=== PATIENT | male | born 1950 | race Caucasian/White ===

== ENCOUNTER → 2021-08-09 14:16 | Outpatient (BNVA) | payer OTHER, SELFPAY | PROVIDERS: Visit Provider Surgery | DX: Z20.822 Contact with and (suspected) exposure to COVID-19 (principal); R10.9 Unspecified abdominal pain | CPT/HCPCS: 87635 ==

== ENCOUNTER 2021-08-12 08:23 | Day surgery (SDC) | payer OTHER, SELFPAY ==
[2021-08-10 12:26] VITALS: BMI 35.9
--- NOTE | 2021-08-12 09:09 | P.ANESASSM_ITS ---
Pre-Anesthetic Assessment Height/Weight: Height 1.83 m Weight 120.202 kg Preop Diagnosis: Abdominal pain Operation Date: 08/12/21 10:30 Proposed Procedures p Colonoscopy 13679 R10.9(Not Applicable) - Lalo Patricia MD Familial anesthetic complications: None Was Beta Hever taken within 24 hours: Yes Was Clonidine taken within 24 hours: N/A Last intake: > 8 hrs Social No alcohol and No tobacco Exam alert, oriented x 3, clear to auscultation bilaterally and regular rate & rhythm Airway Mallampati: Class IV Dentition: other (permanent bridge) Pulmonary Sleep Apnea CV/HEM Coronary Artery Disease (stent > 1 year ago) and Hypertension states he doesnt' take his plavix None reported Hepatic None reported Metabolic Diabetes Mellitus, Hyperlipidemia and Morbid Obesity Anesthetic Plan ASA status: 3 Anesthesia: MAC Other: patient is poor historian Risk of > 500 ml blood loss (7ml/kg in children): No Medications/Allergies Home Medications Medication Instructions Recorded Confirmed Last Taken Type amlodipine 5 mg tablet 5 mg PO DAILY 05/17/21 08/10/21 Unknown History aspirin 81 mg tablet,delayed 81 mg PO DAILY 05/17/21 08/10/21 Unknown History release (Adult Low Dose Aspirin) atorvastatin 80 mg tablet 80 mg PO DAILY 05/17/21 08/10/21 Unknown History buspirone 10 mg tablet 10 mg PO BID 05/17/21 08/10/21 Unknown History cholecalciferol (vitamin D3) 50 50 mcg PO DAILY 05/17/21 08/10/21 Unknown History mcg (2,000 unit) capsule clopidogrel 75 mg tablet 75 mg PO DAILY 05/17/21 08/10/21 Unknown History finasteride 5 mg tablet 5 mg PO DAILY 05/17/21 08/10/21 Unknown History hydrochlorothiazide 25 mg tablet 25 mg PO DAILY 05/17/21 08/10/21 Unknown History hydrocortisone 20 mg tablet 20 mg PO DAILY 05/17/21 08/10/21 Unknown History metformin 1,000 mg tablet 1,000 mg PO DAILY 05/17/21 08/10/21 Unknown History metoprolol tartrate 50 mg tablet 50 mg PO DAILY 05/17/21 08/10/21 Unknown History miconazole nitrate 2 % topical 1 spray TOPICAL DAILY 05/17/21 08/10/21 Unknown History spray powder omeprazole 20 mg capsule,delayed 20 mg PO DAILY 05/17/21 08/10/21 Unknown History release prazosin 2 mg capsule 2 mg PO BID 05/17/21 08/10/21 Unknown History psyllium husk 0.4 gram capsule 0.4 g PO DAILY 05/17/21 08/10/21 Unknown History (Fiber (psyllium husk)) quetiapine 400 mg tablet 400 mg PO BID 05/17/21 08/10/21 Unknown History sertraline 100 mg tablet 100 mg PO DAILY 05/17/21 08/10/21 Unknown History tamsulosin 0.4 mg capsule 0.4 mg PO DAILY 05/17/21 08/10/21 Unknown History trazodone 100 mg tablet 100 mg PO DAILY 05/17/21 08/10/21 Unknown History trospium 20 mg tablet 20 mg PO BID 05/17/21 08/10/21 Unknown History Allergies Allergy/AdvReac Type Severity Reaction Status Date / Time hydrocodone Allergy SWELLING Verified 08/10/21 12:17 IN [facility] Anesthesia Family History Other CAD (coronary artery disease) Cancer Dementia Diabetes Denies family history of Lung disease Stroke Social History Smoking and tobacco status: never smoked Second hand smoke exposure: No Alcohol intake: current Alcohol intake frequency: few times a month Lives independently: Yes Household members: spouse Marital status: Data Anesthesia Cardiac Studies: No Data to Display
[2021-08-12 09:36] VITALS: BP 113/64; PULSE 57; RESP 20; TEMP 36.9; O2SAT 97
[2021-08-12] MEDS: sodium chloride 0.9% 1,000 ML 30 ML IV (09:47)
--- NOTE | 2021-08-12 11:35 | P.HP_ITS ---
Same Day Surgery H&P Indication for Procedure/HPI DATE OF PROCEDURE: August 12, 2021 CHIEF COMPLAINT/INDICATIONFOR SURGICAL PROCEDURE: Abdominal pain PREOP DIAGNOSIS: Abdominal pain PLANNED PROCEDURE: Operation Date: 08/12/21 10:30 Proposed Procedures p Colonoscopy 72043 R10.9(Not Applicable) - Lalo Patricia MD 05/17/2021 This is a pleasant 70 years old gentleman with history of left-sided abdominal pain for the past year or so.? Patient describes it as being sharp gets better with resting and nothing seems to make it worse that he is aware of.? Not being referred.? Denies bleeding per rectum or change in bowel movements.? Previous colonoscopies back in 2010 and 2015 and nothing was remarkable per his descr iption.Denies any left flank pain or dysuria. Patient is referred to me for further evaluation and work-up. Interim history 08/12/2021 Patient comes today for diagnostic colonoscopy, unfortunately the CT scan of the abdomen and pelvis is not done yet due to authorization pending process ROS All systems have been reviewed negative except as per the above or per problem list Medications/Allergies* Home Medications Medication Instructions Recorded Confirmed Type amlodipine 5 mg tablet 5 mg PO DAILY 05/17/21 08/10/21 History aspirin 81 mg tablet,delayed 81 mg PO DAILY 05/17/21 08/12/21 History release (Adult Low Dose Aspirin) atorvastatin 80 mg tablet 80 mg PO DAILY 05/17/21 08/12/21 History buspirone 10 mg tablet 10 mg PO BID 05/17/21 08/12/21 History cholecalciferol (vitamin D3) 50 50 mcg PO DAILY 05/17/21 08/12/21 History mcg (2,000 unit) capsule clopidogrel 75 mg tablet 75 mg PO DAILY 05/17/21 08/12/21 History finasteride 5 mg tablet 5 mg PO DAILY 05/17/21 08/12/21 History hydrochlorothiazide 25 mg tablet 25 mg PO DAILY 05/17/21 08/12/21 History hydrocortisone 20 mg tablet 20 mg PO DAILY 05/17/21 08/10/21 History metformin 1,000 mg tablet 1,000 mg PO DAILY 05/17/21 08/10/21 History metoprolol tartrate 50 mg tablet 50 mg PO DAILY 05/17/21 08/10/21 History miconazole nitrate 2 % topical 1 spray TOPICAL DAILY 05/17/21 08/12/21 History spray powder omeprazole 20 mg capsule,delayed 20 mg PO DAILY 05/17/21 08/12/21 History release prazosin 2 mg capsule 2 mg PO BID 05/17/21 08/12/21 History psyllium husk 0.4 gram capsule 0.4 g PO DAILY 05/17/21 08/10/21 History (Fiber (psyllium husk)) quetiapine 400 mg tablet 400 mg PO BID 05/17/21 08/12/21 History sertraline 100 mg tablet 100 mg PO DAILY 05/17/21 08/12/21 History tamsulosin 0.4 mg capsule 0.4 mg PO DAILY 05/17/21 08/12/21 History trazodone 100 mg tablet 100 mg PO DAILY 05/17/21 08/12/21 History trospium 20 mg tablet 20 mg PO BID 05/17/21 08/10/21 History Allergies/Adverse Reactions Allergy/AdvReac Type Severity Reaction Status Date / Time hydrocodone Allergy SWELLING Verified 08/12/21 11:41 IN ARM Current Medications: Generic Name Dose Route Start Last Admin Trade Name Freq PRN Reason Stop Dose Admin Sodium Chloride 1,000 mls @ 30 mls/hr 08/12/21 08:45 08/12/21 09:47 Sodium Chloride 0.9% IV 08/13/21 08:44 30 mls/hr .Q24H EDVIN Administration Pertinent History/Comorbid Conditions* Family History (Updated 05/17/21 @ 13:45 by Shae Garcia) Diabetes CAD (coronary artery disease) Dementia Cancer Denies family history of Lung disease Stroke Social History Smoking and tobacco status: never smoked Second hand smoke exposure: No Alcohol intake: current Alcohol intake frequency: few times a month Lives independently: Yes Household members: spouse Marital status: Pertinent Exam Findings alert, oriented x 3 and procedure specific exam findings (Abdominal examination nontender nondistended soft) Recommendations Surgery/Procedure today (Colonoscopy with possible biopsy.) Coding Level of Care Code 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
[2021-08-12 12:30] VITALS: BP 121/61; PULSE 63; RESP 16; TEMP 36.1; O2SAT 95
[2021-08-12 12:50] VITALS: BP 121/65; PULSE 50; RESP 16; O2SAT 99
--- NOTE | 2021-08-12 19:18 | ANE.PACU2 ---
Inpatient post-anesthesia follow up: Airway intact: Yes Vital signs: Temperature 97 F Pulse Rate 50 Respiratory Rate 16 Blood Pressure 121/65 Pulse Oximetry 99 Oxygen Delivery Me thod Room Air Oxygen Flow Rate 3 Fraction of Inspir ed Oxygen Hydration adequate: Yes Nausea and vomiting: No Pain level: 1 Mental status: Baseline
== END 2021-08-12 13:05 | disposition home or self-care (01) ==
PROVIDERS: PCP Family Medicine; Visit Provider Surgery
PROC: 0DJD8ZZ Inspection of Lower Intestinal Tract, Via Natural or Artificial Opening Endoscopic (ICD-10-PCS; CPT 45378; principal; 2021-08-12 10:30)
DX: R10.9 Unspecified abdominal pain (principal); K57.30 Diverticulosis of large intestine without perforation or abscess without bleeding; G47.30 Sleep apnea, unspecified; I25.10 Atherosclerotic heart disease of native coronary artery without angina pectoris; Z95.5 Presence of coronary angioplasty implant and graft; I10 Essential (primary) hypertension; Z91.14 Patient's other noncompliance with medication regimen; E66.01 Morbid (severe) obesity due to excess calories; Z68.35 Body mass index [BMI] 35.0-35.9, adult; Z79.82 Long term (current) use of aspirin; Z79.84 Long term (current) use of oral hypoglycemic drugs
CPT/HCPCS: 45378; J2704; J7030

== ENCOUNTER 2021-09-07 07:37 | Outpatient (CLI) | payer OTHER, SELFPAY ==
--- NOTE | 2021-09-07 07:43 | CT_ITS ---
WS: [id number] CT ABDOMEN AND PELVIS WITH CONTRAST HISTORY: R10.9 - Unspecified abdominal pain, LEFT upper quadrant pain for one year. TECHNIQUE: Imaging performed of the abdomen and pelvis with IV contrast. Single phase imaging of the abdomen. Coronal and sagittal reformats are submitted. All CT scans at [facility] use at [address] one of these dose optimization techniques: automated exposure control; mA and/or kV adjustment per patient size (includes targeted exams where dose is matched to clinical indication); or iterative re construction. IV CONTRAST: Omnipaque 300; 95 mL IV. Oral contrast: Yes. DLP: 1340.69 mGy.cm COMPARISON: None available. Lower thorax: Lung bases are clear. Heart is normal size. No hiatal hernia. Liver/biliary system: Mild diffuse hepatic steatosis. No mass. Normal portal vein. No bile duct dilat ation. Gallbladder: Normal. No gallstones or wall thickening. No pericholecystic fluid. Pancreas: Normal size pancreas and pancreatic duct. No adjacent inflammation. Spleen: Normal size spleen. No mass or infarct. Adrenal glands: Normal RIGHT adrenal gland. Mild thickening of the LEFT adrenal gland. Right kidney: Normal. Left kidney: Normal. Aorta: Mild atherosclerosis with no aneurysm. Lymphadenopathy: None. Free fluid: None. GI tract: Normally distended stomach. No small bowel obstruction or wall thickening. Mild fluid diste ntion of the colon but there is no mucosal or submucosal thickening or edema. Numerous diverticula in the distal colon. No acute diverticulitis. The appendix is normal and distended with air. Abdominal wall: There is a very tiny umbilical hernia containing fat only. Pelvis: Prostate gland is enlarged and heterogeneous encroaching into the urinary bladder. Prostate m easures 4.1 x 4.6 cm and extends over length of 5.4 cm. There is mild diffuse thickening of the bladd er wall from outlet obstruction. No focal area of enhancement or nodule. No free fluid or adenopathy. No inguinal hernia. Bones: Increase in lumbar lordosis. CT/CT abdomen pelvis w con* [id number] IMPRESSION: 1. No acute abdominal or pelvic abnormalities. 2. Mild distal colonic diverticulosis without acute diverticulitis. 3. No mass, ascites or adenopathy. 4. Normal appendix. 5. Prostate gland enlargement. 6. Mild hepatic steatosis.
[2021-09-07] MEDS: iohexol 300 mg/mL 50 mL Btl PO (09:10)
[2021-09-07 09:53] LABS: Blood Urea Nitrogen 13 mg/dL (8-23)
== END 2021-09-07 07:38 | disposition home or self-care (01) ==
LOC: RAD 07:38
PROVIDERS: PCP Family Medicine; Visit Provider Surgery
DX: R10.12 Left upper quadrant pain (principal); N40.0 Benign prostatic hyperplasia without lower urinary tract symptoms; K76.0 Fatty (change of) liver, not elsewhere classified
CPT/HCPCS: 74177; 82565; 84520

== ENCOUNTER → 2023-03-09 12:51 | Outpatient (BNVA) | payer OTHER, SELFPAY | PROVIDERS: PCP Family Medicine; Referring Provider Family Medicine; Visit Provider Surgery | DX: R10.9 Unspecified abdominal pain (principal); K22.89 Other specified disease of esophagus | CPT/HCPCS: 99203; 99214 ==

== ENCOUNTER 2023-04-18 07:40 | Outpatient (CLI) | payer OTHER, SELFPAY ==
--- NOTE | 2023-04-18 07:48 | CT_ITS ---
WS: [id number] CT NECK WITH CONTRAST HISTORY: DYSPHAGIA TECHNIQUE: Contiguous 2 mm axial images are performed through the neck with intravenous contrast. Sag ittal and coronal reformats are also submitted. All CT scans at [facility] use at least one o f these dose optimization techniques: automated exposure control; mA and/or kV adjustment per patient size (includes targeted exams where dose is matched to clinical indication); or iterative reconstruc tion. CONTRAST: CONTRAST: Omnipaque 350; 100 mL IV. DLP: 226.74 mGy.cm COMPARISON: None available. Nasopharynx, oropharynx, hypopharynx and larynx are unremarkable. No soft tissue masses or abnormal e nhancement. Torus tubarius and fossa of Rosenmuller and parapharyngeal fat are normal. No significant lymphadenopathy is identified. Thyroid gland and salivary glands are normally enhancing with no masses. No osseous abnormalities. Visualized portions of the skull base demonstrate no abnormalities. Orbits and globes are within norm al limits. No soft tissue masses. Visualized paranasal sinuses and mastoid air cells are normal. Lung apices are clear. Atherosclerotic plaque within the aortic arch. Prior RIGHT humeral head replacement. IMPRESSION: 1. No laryngeal mass. 2. No lymphadenopathy.
[2023-04-18] MEDS: iohexol 350 mg/mL 500 mL Btl (per mL) IV (08:29)
== END 2023-04-18 07:41 | disposition home or self-care (01) ==
LOC: RAD 07:40
PROVIDERS: PCP Family Medicine; Visit Provider Specialist
DX: R13.10 Dysphagia, unspecified (principal)
CPT/HCPCS: 70491; 74220; Q9967

== ENCOUNTER 2023-04-21 08:16 | Outpatient (CLI) | payer OTHER, SELFPAY ==
--- NOTE | 2023-04-21 08:19 | FL_ITS ---
WS: [id number] Barium swallow and esophagram, 04/21/2023 Clinical Data: DYSPHAGIA Comparison: None. Fluoroscopy time: 1min 28.420171yrs # of spot films: 31 Findings: The patient swallowed the thick and thin barium, and it flowed through the hypopharynx without hesita tion. No stricture, mass, polyp or erosion was seen. There is minimal penetration but no aspiration. The barium entered the esophagus and there was normal motility throughout. No reflux, stricture, poly p, mass, erosion or ulcer was noted. There was a small sliding hiatal hernia, but no reflux was prese nt. Impression: 1. Minimal penetration during swallowing but no aspiration. 2. Small sliding hiatal hernia with no reflux.
== END 2023-04-21 08:17 | disposition home or self-care (01) ==
LOC: RAD 08:17
PROVIDERS: PCP Family Medicine; Visit Provider Specialist
DX: R13.10 Dysphagia, unspecified (principal); K44.9 Diaphragmatic hernia without obstruction or gangrene
CPT/HCPCS: 74220

== ENCOUNTER 2023-04-25 10:08 | Outpatient (CLI) | payer OTHER, SELFPAY ==
--- NOTE | 2023-04-25 10:12 | FL_ITS ---
WS: [id number] Exam: FL barium swallow modifd [id number] Date/Time of Exam: 04/25/2023 11:01 AM Reason For Exam: Other dysphagia Fluoroscopy time: 2min [id number] minutes # of spot films: Modified barium swallow was performed in conjunction with the speech therapy service. Oropharyngeal phase of swallowing was normal. The patient tolerated all consistencies of barium mixtu re foodstuffs without penetration or aspiration. The patient swallowed a barium tablet without diffic ulty. IMPRESSION: 1. Unremarkable modified barium swallow. No sign of aspiration or penetration. A separate report of findings and recommendations will follow from the speech therapy service.
== END 2023-04-25 10:09 | disposition home or self-care (01) ==
LOC: RAD 10:08
PROVIDERS: PCP Family Medicine; Visit Provider Specialist
DX: R13.10 Dysphagia, unspecified (principal)
CPT/HCPCS: 74230; 92611

== ENCOUNTER 2023-04-28 07:32 | Day surgery (SDC) | payer OTHER, SELFPAY ==
--- NOTE | 2023-04-28 07:38 | W.PM.OPSFHP ---
Same Day Surgery H&P Indication for Procedure/HPI DATE OF PROCEDURE: April 28, 2023 CHIEF COMPLAINT/INDICATIONFOR SURGICAL PROCEDURE: thickening of esophagus noted on imaging. PREOP DIAGNOSIS: incidental thickening of esophagus PLANNED PROCEDURE: Operation Date: 04/28/23 09:00 Proposed Procedures p EGD 80446,R10.9(Not Applicable) - Rod Ackerman MD Medications/Allergies* Home Medications Medication Instructions Recorded Confirmed Type amlodipine 5 mg tablet 5 mg PO DAILY 05/17/21 04/26/23 History aspirin 81 mg tablet,delayed 81 mg PO DAILY 05/17/21 04/26/23 History release (Adult Low Dose Aspirin) atorvastatin 80 mg tablet 80 mg PO DAILY 05/17/21 04/26/23 History buspirone 10 mg tablet 10 mg PO BID 05/17/21 04/26/23 History cholecalciferol (vitamin D3) 50 50 mcg PO DAILY 05/17/21 04/26/23 History mcg (2,000 unit) capsule clopidogrel 75 mg tablet 75 mg PO DAILY 05/17/21 04/26/23 History finasteride 5 mg tablet 5 mg PO DAILY 05/17/21 04/26/23 History hydrochlorothiazide 25 mg tablet 25 mg PO DAILY 05/17/21 04/26/23 History hydrocortisone 20 mg tablet 20 mg PO DAILY 05/17/21 04/26/23 History metformin 1,000 mg tablet 1,000 mg PO BID 05/17/21 04/26/23 History metoprolol tartrate 50 mg tablet 50 mg PO BID 05/17/21 04/26/23 History miconazole nitrate 2 % topical 1 spray topical DAILY 05/17/21 04/26/23 History spray powder omeprazole 20 mg capsule,delayed 20 mg PO DAILY 05/17/21 04/26/23 History release prazosin 2 mg capsule 2 mg PO BID 05/17/21 04/26/23 History psyllium husk 0.4 gram capsule 0.4 g PO DAILY 05/17/21 04/26/23 History (Fiber (psyllium husk)) quetiapine 400 mg tablet 400 mg PO BID 05/17/21 04/26/23 History sertraline 100 mg tablet 100 mg PO DAILY 05/17/21 04/26/23 History tamsulosin 0.4 mg capsule 0.4 mg PO DAILY 05/17/21 04/26/23 History trazodone 100 mg tablet 100 mg PO DAILY 05/17/21 04/26/23 History trospium 20 mg tablet 20 mg PO BID 05/17/21 04/26/23 History Allergies/Adverse Reactions Allergy/AdvReac Type Severity Reaction Status Date / Time hydrocodone Allergy SWELLING Verified 03/09/23 13:15 IN ARM Pertinent History/Comorbid Conditions* Family History (Updated 05/17/21 @ 13:45 by Shae Garcia RN) Diabetes CAD (coronary artery disease) Dementia Cancer Denies family history of Lung disease Stroke Social History Smoking and tobacco/nicotine status: never used tobacco/nicotine Second hand smoke exposure: No Alcohol intake: current Alcohol intake frequency: few times a month Substance/Drug Use: never Lives independently: Yes Household members: spouse Marital status: Pertinent Exam Findings alert, oriented x 3, clear to auscultation bilaterally, regular rate & rhythm and operative site marked Recommendations Surgery/Procedure today Coding Level of Care Code Acute Code for Chg Fwd Diagnoses
[2023-04-28 07:49] VITALS: BP 130/76; PULSE 68; RESP 18; TEMP 36.1; O2SAT 95; BMI 33.9
[2023-04-28] MEDS: sodium chloride 0.9% 1,000 ML 30 ML IV (07:56)
--- NOTE | 2023-04-28 07:59 | ANES.PREANE2 ---
Pre-Anesthetic Assessment Height/Weight: Height 1.83 m Weight 113.398 kg Temp Pulse Resp BP Pulse Ox O2 Del Method 97.0 F L 68 18 130/76 95 Room Air 04/28/23 07:49 04/28/23 07:49 04/28/23 07:49 04/28/23 07:49 04/28/23 07:49 04/28/23 07:49 Preop Diagnosis: incidental thickening of esophagus Operation Date: 04/28/23 09:00 Proposed Procedures p EGD 41563,R10.9(Not Applicable) - Rod Ackerman MD Familial anesthetic complications: none Was Beta Hever taken within 24 hours: Yes Was Clonidine taken within 24 hours: N/A Last intake: Intake Last Liquid Date 04/27/23 Last Liquid Time 19:30 Last Solid Date 04/27/23 Last Solid Time 19:30 Social No alcohol and No tobacco Exam alert, oriented x 3, clear to auscultation bilaterally and regular rate & rhythm Airway Mallampati: Class IV Dentition: other (bridge) CV/HEM Coronary Artery Disease (stent) and Hypertension Metabolic Diabetes Mellitus and Hyperlipidemia Anesthetic Plan ASA status: 3 Anesthesia: MAC Risk of > 500 ml blood loss (7ml/kg in children): No Medications/Allergies Home Medications Medication Instructions Recorded Confirmed Last Taken Type amlodipine 5 mg tablet 5 mg PO DAILY 05/17/21 04/28/23 04/27/23 History aspirin 81 mg tablet,delayed 81 mg PO DAILY 05/17/21 04/28/23 04/26/23 History release (Adult Low Dose Aspirin) atorvastatin 80 mg tablet 80 mg PO DAILY 05/17/21 04/28/23 04/27/23 History buspirone 10 mg tablet 10 mg PO BID 05/17/21 04/28/23 04/27/23 History cholecalciferol (vitamin D3) 50 50 mcg PO DAILY 05/17/21 04/28/23 04/27/23 History mcg (2,000 unit) capsule clopidogrel 75 mg tablet 75 mg PO DAILY 05/17/21 04/28/23 04/19/23 History finasteride 5 mg tablet 5 mg PO DAILY 05/17/21 04/28/23 04/27/23 History hydrochlorothiazide 25 mg tablet 25 mg PO DAILY 05/17/21 04/28/23 04/27/23 History hydrocortisone 20 mg tablet 20 mg PO DAILY 05/17/21 04/28/23 04/27/23 History metformin 1,000 mg tablet 1,000 mg PO BID 05/17/21 04/28/23 04/27/23 History metoprolol tartrate 50 mg tablet 50 mg PO BID 05/17/21 04/28/23 04/27/23 History miconazole nitrate 2 % topical 1 spray topical DAILY 05/17/21 04/28/23 04/27/23 History spray powder omeprazole 20 mg capsule,delayed 20 mg PO DAILY 05/17/21 04/28/23 04/27/23 History release prazosin 2 mg capsule 2 mg PO BID 05/17/21 04/28/23 04/27/23 History psyllium husk 0.4 gram capsule 0.4 g PO DAILY 05/17/21 04/28/23 04/27/23 History (Fiber (psyllium husk)) quetiapine 400 mg tablet 400 mg PO BID 05/17/21 04/28/23 04/27/23 History sertraline 100 mg tablet 100 mg PO DAILY 05/17/21 04/28/23 04/27/23 History tamsulosin 0.4 mg capsule 0.4 mg PO DAILY 05/17/21 04/28/23 04/27/23 History trazodone 100 mg tablet 100 mg PO DAILY 05/17/21 04/28/23 04/27/23 History trospium 20 mg tablet 20 mg PO BID 05/17/21 04/28/23 04/27/23 History Allergies Allergy/AdvReac Type Severity Reaction Status Date / Time hydrocodone Allergy SWELLING Verified 03/09/23 13:15 IN ARM Current Medications Generic Name Dose Route Start Last Admin Trade Name Freq PRN Reason Stop Dose Admin Sodium Chloride 1,000 mls @ 30 mls/hr 04/28/23 07:45 04/28/23 07:56 Sodium Chloride 0.9% IV 04/29/23 07:44 30 mls/hr .Q24H EDVIN Administration PFSH Anesthesia Family History Other CAD (coronary artery disease) Cancer Dementia Diabetes Denies family history of Lung disease Stroke Social History Smoking and tobacco/nicotine status: never used tobacco/nicotine Second hand smoke exposure: No Alcohol intake: current Alcohol intake frequency: few times a month Substance/Drug Use: never Lives independently: Yes Household members: spouse Marital status: Data Anesthesia Cardiac Studies: No Data to Display
[2023-04-28 08:11] LABS: Glucose Point of Care 128 mg/dL (70-110)
[2023-04-28 09:15] VITALS: BP 121/65; PULSE 67; RESP 16; TEMP 36.2; O2SAT 96
--- NOTE | 2023-04-28 09:19 | ANE.PACU2 ---
Inpatient post-anesthesia follow up: Airway intact: Yes Vital signs: Temperature 97.2 F Pulse Rate 67 Respiratory Rate 16 Blood Pressure 121/65 Pulse Oximetry 96 Oxygen Delivery Me thod Nasal Cannula Oxygen Flow Rate 2 Fraction of Inspir ed Oxygen Hydration adequate: Yes Nausea and vomiting: No Pain level: 1 Mental status: Baseline
[2023-04-28 09:25] VITALS: BP 122/64; PULSE 59; RESP 16; O2SAT 96
== END 2023-04-28 09:55 | disposition home or self-care (01) ==
PROVIDERS: PCP Family Medicine; Visit Provider Surgery
PROC: 0DJ08ZZ Inspection of Upper Intestinal Tract, Via Natural or Artificial Opening Endoscopic (ICD-10-PCS; CPT 43235; principal; 2023-04-28 09:00)
DX: R10.9 Unspecified abdominal pain (principal); K44.9 Diaphragmatic hernia without obstruction or gangrene; K29.70 Gastritis, unspecified, without bleeding; I25.10 Atherosclerotic heart disease of native coronary artery without angina pectoris; I10 Essential (primary) hypertension; Z95.5 Presence of coronary angioplasty implant and graft; E11.9 Type 2 diabetes mellitus without complications; Z79.84 Long term (current) use of oral hypoglycemic drugs; Z79.82 Long term (current) use of aspirin
CPT/HCPCS: 36416; 43239; 82962; 88305; J2704; J7030

== ENCOUNTER → 2023-05-09 11:07 | Outpatient (BNVA) | payer OTHER, SELFPAY | PROVIDERS: PCP Family Medicine; Visit Provider Surgery | DX: Z09 Encounter for follow-up examination after completed treatment for conditions other than malignant neoplasm (principal) | CPT/HCPCS: 99213 ==

== ENCOUNTER → 2025-04-23 14:52 | Outpatient (BNVA) | payer MEDICARE, SELFPAY | PROVIDERS: PCP Family Medicine; Visit Provider Nurse Practitioner Family | DX: E55.9 Vitamin D deficiency, unspecified (principal); E11.649 Type 2 diabetes mellitus with hypoglycemia without coma; Z12.5 Encounter for screening for malignant neoplasm of prostate | CPT/HCPCS: 80053; 80061; 81003; 82306; 83036; 84443; 85025; G0103 ==